=== PATIENT | female | born 1985 | race American Indian/Alaskan Native ===

== ENCOUNTER 2021-05-15 13:20 | Emergency (ER) | payer BC, OTHER ==
--- NOTE | 2021-05-15 13:40 | Emergency Department Report ---
ED General Adult HPI - General Chief complaint: Neuro Symptoms/Deficit Stated complaint: NEURO SYMPTOMS Time Seen by Provider: 05/15/21 13:40 Source: patient Mode of arrival: Ambulatory Limitations: No Limitations - History of Present Illness Initial comments: 35-year-old female presents to the ER today with complaints of right facial weakness. Patient states that her symptoms started yesterday when she woke up. Patient states that she noticed her symptoms yesterday when she woke up. She reports that her friends often feels felt heavy, and she felt like her mouth was twisting mainly to the left, and her speech was a little slurred. She states that her symptoms are better today. She denies any headache, dizziness, vision changes, difficulty swallowing, focal extremity weakness or numbness, chest pain or shortness of breath or any additional symptoms. She denies any head injury. She denies any recent URI symptoms, fever or chills. She denies similar symptoms in the past. She states that she drinks socially. She denies any illicit drug use. She is obese but otherwise has no significant past medical history. MD Complaint: weakness right side of face -: Gradual, days(s) (1) - Related Data Previous Rx's Medication Instructions Recorded Last Taken Type Ciprofloxacin HCl [Ciprofloxacin 500 mg PO Q12HR #14 tab 04/28/15 Unknown Rx TAB] HYDROcodone/APAP 10-325 [[place] 1 each PO Q6HR PRN #20 tablet 04/28/15 Unknown Rx 10/325] Ondansetron [Zofran Odt] 4 mg PO Q8HR PRN #20 tab.rapdis 04/28/15 Unknown Rx metroNIDAZOLE [Flagyl] 500 mg PO Q12HR #14 tab 04/28/15 Unknown Rx HYDROcodone/APAP 7.5-325 [[place] 1 each PO Q6HR PRN #14 tablet 12/21/15 Unknown Rx 7.5/325] Ondansetron [Zofran Odt] 4 mg PO Q6H #10 tab.rapdis 12/21/15 Unknown Rx Valacyclovir HCl [Valtrex] 1,000 mg PO Q12H #14 05/15/21 Unknown Rx methylPREDNISolone [Medrol 4MG 4 mg PO DAILY #1 pack 05/15/21 Unknown Rx DOSEPAK (21 tabs)] Allergies Allergy/AdvReac Type Severity Reaction Status Date / Time No Known Allergies Allergy Unverified 04/28/15 10:02 ED Review of Systems ROS: Stated complaint: NEURO SYMPTOMS Other details as noted in HPI Comment: All other systems reviewed and negative Constitutional: denies: chills, fever Eyes: denies: eye pain, eye discharge, vision change ENT: denies: ear pain, throat pain, dental pain, hearing loss, epistaxis, congestion Respiratory: denies: cough, shortness of breath, SOB with exertion, SOB at rest, wheezing Cardiovascular: denies: chest pain, palpitations, dyspnea on exertion, edema, syncope, paroxysmal nocturnal dyspnea Gastrointestinal: denies: abdominal pain, nausea, diarrhea, constipation, hematemesis, melena, hematochezia Genitourinary: denies: urgency, dysuria, frequency, hematuria, discharge, abnor mal menses, dyspareunia Skin: denies: rash, lesions, change in color, change in hair/nails, pruritus Neurological: weakness (Right face). denies: headache, numbness, paresthesias, confusion, abnormal gait, vertigo Psychiatric: denies: anxiety, depression, auditory hallucinations, visual hallucinations, homicidal thoughts, suicidal thoughts Hematological/Lymphatic: denies: easy bleeding, easy bruising ED Past Medical Hx - Past Medical History Previous Medical History?: No Additional medical history: Gallstones - Surgical History Additional Surgical History: c sect x 3, tubal ligation - Social History Smoking Status: Never Smoker Substance Use Type: None - Medications Home Medications: Home Medications Medication Instructions Recorded Confirmed Last Taken Type Ciprofloxacin HCl [Ciprofloxacin 500 mg PO Q12HR #14 tab 04/28/15 Unknown Rx TAB] HYDROcodone/APAP 10-325 [[place] 1 each PO Q6HR PRN #20 tablet 04/28/15 Unknown Rx 10/325] Ondansetron [Zofran Odt] 4 mg PO Q8HR PRN #20 tab.rapdis 04/28/15 Unknown Rx metroNIDAZOLE [Flagyl] 500 mg PO Q12HR #14 tab 04/28/15 Unknown Rx HYDROcodone/APAP 7.5-325 [[place] 1 each PO Q6HR PRN #14 tablet 12/21/15 Unknown Rx 7.5/325] Ondansetron [Zofran Odt] 4 mg PO Q6H #10 tab.rapdis 12/21/15 Unknown Rx Valacyclovir HCl [Valtrex] 1,000 mg PO Q12H #14 05/15/21 Unknown Rx methylPREDNISolone [Medrol 4MG 4 mg PO DAILY #1 pack 05/15/21 Unknown Rx DOSEPAK (21 tabs)] ED Physical Exam - General Limitations: No Limitations General appearance: alert, in no apparent distress, obese - Head Head exam: Present: atraumatic, normocephalic, normal inspection, other - Eye Eye exam: Present: normal appearance, PERRL, EOMI Pupils: Present: normal accommodation - ENT ENT exam: Present: mucous membranes moist - Neck Neck exam: Present: normal inspection, full ROM. Absent: meningismus - Respiratory Respiratory exam: Present: normal lung sounds bilaterally. Absent: respiratory distress, wheezes, rales, rhonchi - Cardiovascular Cardiovascular Exam: Present: regular rate, normal rhythm, normal heart sounds - GI/Abdominal GI/Abdominal exam: Present: soft. Absent: distended, tenderness, guarding, rebound - Extremities Exam Extremities exam: Present: normal inspection, full ROM. Absent: normal capillary refill, pedal edema, calf tenderness - Neurological Exam Neurological exam: Present: alert, oriented X3, normal gait - Expanded Neurological Exam Expanded Cranial nerves: EOM's Intact: Normal, Gag Reflex: Normal, Tongue Deviation: Normal, Facial Sensation: Normal, Facial Palsy without Forehead Movement: Abnormal Right Cerebellar function: Finger to Nose: Normal, Heel to Smith: Normal, Romberg: Normal Sensory exam: Upper Extremity Light Touch: Normal, Upper Extremity Pin Prick: Normal, Upper Extremity Temperature: Normal, Lower Extremity Light Touch: Normal, Lower Extremity Pin Prick: Normal, Lower Extremity Temperature: Normal Motor strength exam: RUE: 5, LUE: 5, RLE: 5, LLE: 5 Best Eye Response ([place]): (4) open spontaneously Best Motor Response ([place]): (6) obeys commands Best Verbal Response (Eva): (5) oriented Eva Total: 15 - Psychiatric Psychiatric exam: Present: normal affect, normal mood - Skin Skin exam: Present: intact ED Course Vital Signs 05/15/21 05/15/21 13:29 14:43 Temperature 98.4 F Pulse Rate 118 H 105 H Respiratory 18 16 Rate Blood Pressure 166/102 Blood Pressure 159/90 [Right] O2 Sat by Pulse 96 97 Oximetry ED Medical Decision Making - Medical Decision Making 35-year-old female presents to the ER today with complaints of right facial weakness. Patient states that her symptoms started yesterday when she woke up. Patient states that she noticed her symptoms yesterday when she woke up. She reports that her friends often feels felt heavy, and she felt like her mouth was twisting mainly to the left, and her speech was a little slurred. She states that her symptoms are better today. She denies any headache, dizziness, vision changes, difficulty swallowing, focal extremity weakness or numbness, chest pain or shortness of breath or any additional symptoms. She denies any head injury. She denies any recent URI symptoms, fever or chills. She denies similar symptoms in the past. She states that she drinks socially. She denies any illicit drug use. She is obese but otherwise has no significant past medical history. 1419: Patient had physical exam concerning for Brandt's palsy as she only has right-sided facial involvement with drooping at the angle of the right mouth, difficulty closing her right eyelid, and inability to raise her right eyebrow. She moves all her extremities well, strength 5 out of 5 bilateral upper and lower extremity and sensation intact bilateral upper and lower extremity, she has a normal gait, there is no slurred speech on exam and he has no vision change. VS reviewed. He denies any known history of hypertension and she states that when she followed up with her primary care doctor 1 year ago it was normal. Patient also admits that she has been under lots of stress in the past year with the recent loss of her mom. Case was discussed with Dr. Kasia Arnett, who also evaluated patient, and agreed that this is most likely related to Brandt's palsy. Do not suspect TIA, CVA, meningitis, [place]'s disease, or any other intracranial or other emergent conditions warranting testing at this time. Discussed suspected diagnosis of Brandt's palsy with patient. Recommend that she continue to monitor her blood pressure at home, and document results and follow- up with her PCP next week. She understands to return to the ER if symptoms worsens or changes in any way. Critical care attestation.: If time is entered above; I have spent that time in minutes in the direct care of this critically ill patient, excluding procedure time. ED Disposition Clinical Impression: Brandt's palsy Disposition: 01 HOME / SELF CARE / HOMELESS Is pt being admited?: No Does the pt Need Aspirin: No Condition: Stable Instructions: Brandt Palsy, Adult Additional Instructions: I recommend that you take the Valtrex and the Medrol Dosepak as prescribed. Follow-up with the primary care doctor listed on your discharge instructions. Return to the ER if your symptoms worsens or he develop additional symptoms with it such as extremity weakness, chest pain or shortness of breath. Prescriptions: methylPREDNISolone [Medrol 4MG DOSEPAK (21 tabs)] 4 mg PO DAILY #1 pack Valacyclovir HCl [Valtrex] 1,000 mg PO Q12H #14 Referrals: MD DEAN [Other] - 3-5 Days Forms: Work/School Release Form(ED) Time of Disposition: 14:19
[2021-05-15] MEDS ORDERED: DEXAMETHASONE 4 MG TAB PO ONE (13:44)
[2021-05-15 14:52] VITALS: BP 159/90
== END 2021-05-15 14:52 | disposition home or self-care (01) ==
LOC: ED 13:20
DX: G51.0 Bell's palsy (principal); K80.80 Other cholelithiasis without obstruction; Z98.51 Tubal ligation status; Z98.890 Other specified postprocedural states
CPT/HCPCS: 99282; J8540